=== PATIENT | female | born 1985 | race Two or more races ===

== ENCOUNTER 2024-10-05 18:01 | Emergency (ER) | payer MEDICAID, SELFPAY ==
[2024-10-05 18:14] VITALS: BP 126/91; PULSE 82; RESP 18; TEMP 36.9; O2SAT 98
--- NOTE | 2024-10-05 19:08 | PD.EDEYE ---
ED Eye Problem RME/HPI General Chief complaint: Eye Problems Stated complaint: Left eye poked in garden by plant Time Seen by Provider: 10/05/24 19:04 Arrival date/time: 10/05/24 18:01 38F with no significant PMH presents to ED with L eye irritation after she accidentally poked it with a plant. Patient denies vision changes. Limitations: no limitations Related Data Previous Rx's ?Medication ?Instructions ?Recorded Zofran 4 mg ODT 1 tab PO q4hprn nausea #4 tabs 02/14/17 albuterol sulfate 90 mcg/actuation 1 inh inhalation QID PRN shortness 02/24/20 aerosol inhaler (Ventolin HFA) of breath or wheezing #6.7 grams benzonatate 100 mg capsule 100 mg PO BID PRN cough #7 caps 02/24/20 (Tessaljulia Mi) azithromycin 500 mg tablet See Rx Instructions PO .COMPLEX #3 02/25/20 tabs erythromycin 5 mg/gram (0.5 %) eye 0.5 inch ophthalmic (eye) QID 1 10/05/24 ointment week #3.5 grams Allergies Allergy/AdvReac Type Severity Reaction Status Date / Time NKA* Allergy Uncoded 10/05/24 18:04 Review of Systems Review of Systems Systems Reviewed: All systems reviewed, normal except as documented Constitutional Constitutional: Reports system reviewed and no additional complaints, except as documented, Denies fever(s) and Denies headache(s) Eyes Eyes: Reports as per HPI and Reports irritation ENT Ears, Nose, Mouth, and Throat: Denies disequilibrium and Denies headache(s) Cardiovascular Cardiovascular: Reports system reviewed and no additional complaints, except as documented, Denies chest pain and Denies dyspnea Respiratory Respiratory: Reports system reviewed and no additional complaints, except as documented, Denies cough and Denies dyspnea Gastrointestinal Gastrointestinal: Reports system reviewed and no additional complaints, except as documented, Denies abdominal pain, Denies nausea and Denies vomiting Neurologic Neurologic: Reports system reviewed and no additional complaints, except as documented, Denies confusion, Denies disequilibrium and Denies headache(s) Psychiatric Psychiatric: Denies confusion Past Medical History Past Medical History CARDIAC: Negative Congestive Heart Failure RESPIRATORY: Negative Chronic Obstructive Pulmonary Disease (COPD) GENITOURINARY: Negative Renal Disease ENDOCRINE: Negative Diabetes Mellitus Type 1 or Diabetes Mellitus Type 2 Social History SMOKING STATUS: Never smoker ED Exam General Limitations: Present no limitations General appearance: Present alert and in no apparent distress Head Head exam: Present atraumatic Eye Eye exam: Present PERRL and EOMI Expanded Eye Exam Sclera/Conjunctival: left: injection (minimal inner corner) ENT ENT exam: Present normal exam, normal oropharynx and mucous membranes moist Neck Neck exam: Present normal inspection, full ROM and trachea midline Chest Chest inspection: Present normal inspection and symmetric chest wall rise Respiratory Respiratory exam: Present normal lung sounds bilaterally Cardiovascular Cardiovascular exam: Present regular rate, normal rhythm and normal heart sounds Abdominal Exam Abdominal exam: Present soft and normal bowel sounds Extremities Exam Extremities exam: Present normal inspection and full ROM Back Exam Back exam: Present normal inspection and full ROM Neurological Exam Neurological exam: Present alert, oriented X3 and CN II-XII intact Psychiatric Psychiatric exam: Present normal affect and normal mood Skin Skin exam: Present warm, dry, intact and normal color Course Quality Measures none Orders Category Date Time Status ED Eye Irrigation ONCE Care 10/05/24 19:34 Active Granados Lamp to Bedside X1 Care 10/05/24 19:04 Active Erythromycin Op Oint 0.5% Med 10/05/24 19:04 Discontinued 1 gm LEFT EYE X1 ONE Fluorescein Sodium [Bio-Anitra] Med 10/05/24 19:04 Discontinued 1 mg LEFT EYE X1 ONE Vital Signs Vital signs: Vital Signs Temperature 98.5 F 10/05/24 18:14 Pulse Rate 82 10/05/24 18:14 Respiratory Rate 18 10/05/24 18:14 Blood Pressure 126/91 H 10/05/24 18:14 Pulse Oximetry (%) 98 10/05/24 18:14 Oxygen Delivery Method Room Air 10/05/24 18:14 O2 at 98% on RA and WNLs Eye MDM Narrative MDM Narrative:: 38F with no significant PMH presents to ED with L eye irritation after she accidentally poked it with a plant. Patient denies vision changes. Physical exam reveals minimal redness of L inner corner of eye. No excessive blinking or tearing. Normal pupil response and EOM. Patient is afebrile, calm, and alert. Wood's lamp exam reveals minimal corneal abrasion in L inner corner of eye. Meds and pre parole counseling aide given. Patient data External records reviewed:: [facility] previous records Clinical information provided by:: patient Social determinants that could affect healthcare access:: none Patient has the following chronic illnesses:: none How is presenting disease/condition affected by chronic disease/condition?: no chronic disease Evaluation data The following diagnostics were reviewed and interpreted by me:: other (specify) (none) Lab and/or radiology exams considered but not ordered:: not ordered Interpretation Summary: n/a Medications / Prescriptions Medications or Prescriptions considered but not ordered:: ordered Medication administrations:: Medication Administration History Discontinued Medications Erythromycin (Erythromycin Op Oint 0.5% 1 Gm Packet) 1 gm LEFT EYE X1 ONE Stop: 10/05/24 19:05 Fluorescein Sodium (Fluorescein Sod 1 Mg Strp) 1 mg LEFT EYE X1 ONE Stop: 10/05/24 19:05 Last Admin: 10/05/24 19:25 Dose: 1 mg Documented By: MICHELLE Comments: USED BY PROVIDER above Consultations Consultation(s) initiated? (list below): No Diagnosis Eye Problem Differential Diagnosis: corneal abrasion, conjunctivitis, acute iritis, hyphema, periorbital cellulitis, subconjunctival hemorrhage, glaucoma, corneal ulcer and ruptured globe Most likely diagnosis given after review of the tests above:: corneal abrasion Admission Indicated Admission indicated?: not indicated Admission Request Was there a request for admission?: No Disposition Plan Disposition Plan: Discharge Discharge Attestation Discharge Attestation: The patient and all family members were given an opportunity to ask questions and understood the discharge instructions. Discharge instructions specifically effects, indications for sooner follow up or return to the emergency department, and the expected course of current diagnosis. Patient condition: Stable Discharge Plan Plan Patient Disposition: HOME (Self Care) Discharge Disposition comment: Stable Prescriptions/Referrals Prescriptions/Med Rec: New erythromycin 5 mg/gram (0.5 %) ointment 0.5 inch ophthalmic (eye) QID 7 Days Qty: 3.5 0RF No Action Zofran 4 mg ODT 1 tab PO q4hprn nausea Qty: 4 0RF albuterol sulfate [Ventolin HFA] 90 mcg/actuation HFA aerosol inhaler 1 inh inhalation QID PRN (Reason: shortness of breath or wheezing) Qty: 6.7 0RF benzonatate [Tessalon Perles] 100 mg capsule 100 mg PO BID PRN (Reason: cough) Qty: 7 0RF azithromycin 500 mg tablet See Rx Instructions .ROUTE .COMPLEX Qty: 3 0RF Rx Instructions: take 500 mg today (day 1), then 250 mg for 4 days (days 2-5) Referrals: Ronnie Zaragoza MD [Primary Care Provider] - In 1 week Problem List Clinical Impression: Corneal abrasion Patient/Caregiver Discharge Instructions Education Materials: ED Corneal Abrasion Additional Instructions: Please follow-up with PCP within 24-48 hours and return immediately if symptoms worsen. See eye doctor soon. Print Language: Portuguese Stand Alone Forms: Patient Portal Info Letter PA/DAIRY [employer] TE[employer] Supervising Physician JOHN/NEHEMIAS Supervising Physician: Dr. Bruce
[2024-10-05] MEDS: FLUORESCEIN SOD 1 MG STRP LEFT EYE (19:25)
[2024-10-05] MEDS: Erythromycin Op Oint 0.5% 1 GM PACKET LEFT EYE (19:54)
== END 2024-10-05 19:58 | disposition home or self-care (01) ==
PROVIDERS: Emergency Provider Emergency Medicine; PCP Family Medicine
DX: S05.02XA Injury of conjunctiva and corneal abrasion without foreign body, left eye, initial encounter (principal); X58.XXXA Exposure to other specified factors, initial encounter
CPT/HCPCS: 99283; A9270